=== PATIENT | male | born 1980 | race Caucasian/White ===

== ENCOUNTER 2016-07-10 17:35 | Emergency (ER) | payer BC, OTHER ==
[2016-07-10 17:43] VITALS: BMI 29.8
--- NOTE | 2016-07-10 17:47 | PDOC ---
History of Present Illness - General History Source: Patient, Family, Old Records <Mary Hernandez - Last Filed: 07/10/16 18:16> - History of Present Illness Initial Comments: 07/10/16 18:19 Patient is a 35 year old male with significant medical hx of anxiety/depression and schizoaffective disorder who brought in to the ED via EMS for somnolence and slurred speech since this afternoon. Patient is accompanied by mother who provided history. Mother reports the patient woke up very late in the day today and was acting more lethargic than usual. He was also slurring his speech and unsteady on his feet. She states that the patient reportedly took a few Ativan and called EMS suspecting that he took more than his prescribed dose. Patient is an unreliable historian. Patients psychiatrist was contacted who reported that the patient often has fixed paranoid delusions that worsens when he smokes marijuana. Today the patient e-mailed his psychiatrist vocalizing fears that people were out to get him and stated that his Ativan wasnt working. The patient had an appointment with his psychiatrist today but never showed. Psychiatrist: Wallace cMkee MD ([phone]) <Ekaterina Cheek - Last Filed: 07/10/16 18:43> <Adrianne Birmingham - Last Filed: 07/16/16 21:07> - General Chief Complaint: Altered Mental Status Stated Complaint: OVERDOSE Time Seen by Provider: 07/10/16 17:47 Past History - Past Medical History Psychiatric Problems: Yes (schizophrenic) - Psycho/Social/Smoking Cessation Hx Anxiety: Yes Suicidal Ideation: No Smoking Status: Yes Smoking History: Current every day smoker Number of Cigarettes Smoked Daily: 20 Information on smoking cessation initiated: No Hx Alcohol Use: No Drug/Substance Use Hx: No Substance Use Type: None <Mary Hernandez - Last Filed: 07/10/16 18:16> <Ekaterina Cheek - Last Filed: 07/10/16 18:43> <Adrianne Birmingham - Last Filed: 07/16/16 21:07> - Past Medical History Allergies/Adverse Reactions: Allergies Allergy/AdvReac Type Severity Reaction Status Date / Time No Known Allergies Allergy Verified 07/10/16 17:43 Home Medications: Ambulatory Orders Lamotrigine [Lamictal] 100 mg PO DAILY 03/09/12 Lorazepam [Ativan] 1 mg PO ASDIR 07/10/16 Lurasidone HCl [Latuda -] 40 mg PO DAILY 07/10/16 Review of Systems - Review of Systems Comments:: 07/10/16 18:20 Unable to obtain secondary to patient compliance. <Ekaterina Cheek - Last Filed: 07/10/16 18:43> *Physical Exam - Vital Signs Last Vital Signs Temp Pulse Resp BP Pulse Ox 97.9 F 120 H 18 136/91 100 07/10/16 17:38 07/10/16 17:38 07/10/16 17:38 07/10/16 17:38 07/10/16 17:38 <Mary Hernandez - Last Filed: 07/10/16 18:16> - Vital Signs Last Vital Signs Temp Pulse Resp BP Pulse Ox 97.9 F 120 H 18 136/91 100 07/10/16 17:38 07/10/16 17:38 07/10/16 17:38 07/10/16 17:38 07/10/16 17:38 - Physical Exam Comments: 07/10/16 18:20 GENERAL: Awake, alert, and fully oriented, in no acute distress HEAD: No signs of trauma EYES: PERRLA, EOMI, sclera anicteric, conjunctiva clear ENT: Auricles normal inspection, hearing grossly normal, nares patent, oropharynx clear without exudates. Moist mucosa NECK: Normal ROM, supple, no lymphadenopathy, JVD, or masses LUNGS: Breath sounds equal, clear to auscultation bilaterally. No wheezes, and no crackles HEART: Regular rate and rhythm, normal S1 and S2, no murmurs, rubs or gallops ABDOMEN: Soft, nontender, normoactive bowel sounds. No guarding, no rebound. No masses EXTREMITIES: Normal range of motion, no edema. No clubbing or cyanosis. No cords, erythema, or tenderness NEUROLOGICAL: Cranial nerves II through XII grossly intact. Unsteady on feet but moving all extremities equally. SKIN: Warm, Dry, normal turgor, no rashes or lesions noted. ENDOCRINE: No abnormal weight change. HEMATOLOGIC/LYMPHATIC: No anemia, easy bleeding, or history of blood clots. ALLERGIC/IMMUNOLOGIC: No hives or skin allergy. PSYCH: Paranoid. Uncooperative with physical exam. Blunted affect. <HamMengEkaterina - Last Filed: 07/10/16 18:43> - Vital Signs Last Vital Signs Temp Pulse Resp BP Pulse Ox 97.9 F 77 18 115/64 97 07/11/16 05:09 07/11/16 05:09 07/11/16 05:09 07/11/16 05:09 07/11/16 05:09 <BirminghamAdrianne - Last Filed: 07/16/16 21:07> Heart Score/ECG Review #1 07/10/16 18:43 Sinus tachycardia at 114 bpm Cannot rule Anterior infarct, age undetermined Abnormal ECG <HamEkaterina - Last Filed: 07/10/16 18:43> ED Treatment Course - LABORATORY CBC & Chemistry Diagram: 07/10/16 18:00 07/10/16 18:00 <HmaEkaterina - Last Filed: 07/10/16 18:43> - LABORATORY CBC & Chemistry Diagram: 07/10/16 18:00 07/10/16 19:00 - ADDITIONAL ORDERS Additional order review: Laboratory Results 07/10/16 07/10/16 07/10/16 19:00 19:00 19:00 Sodium Potassium Chloride Carbon Dioxide Anion Gap BUN Creatinine Creat Clearance w eGFR Random Glucose Calcium Total Bilirubin AST ALT Alkaline Phosphatase Creatine Kinase Troponin I Total Protein Albumin TSH 0.67 Salicylates < 4.0 Opiates Screen Methadone Screen Acetaminophen < 2.000 L Barbiturate Screen Phencyclidine Screen Ur Amphetamines Screen MDMA (Ecstasy) Screen Benzodiazepines Screen Cocaine Screen U Marijuana (THC) Screen Alcohol, Quantitative < 5.0 07/10/16 07/10/16 07/10/16 19:00 18:00 18:00 Sodium 140 Potassium 4.0 Chloride 106 Carbon Dioxide 25 Anion Gap 9 BUN 8 Creatinine 0.7 D Creat Clearance w eGFR > 60 Random Glucose 80 Calcium 8.9 Total Bilirubin 0.5 D AST 12 L D ALT 37 D Alkaline Phosphatase 128 H D Creatine Kinase 85 Troponin I < 0.02 Total Protein 6.3 L Albumin 3.5 TSH Salicylates Opiates Screen Negative Methadone Screen Negative Acetaminophen Barbiturate Screen Negative Phencyclidine Screen Negative Ur Amphetamines Screen Negative MDMA (Ecstasy) Screen Negative Benzodiazepines Screen Positive Cocaine Screen Negative U Marijuana (THC) Screen Negative Alcohol, Quantitative Cancelled 07/10/16 07/10/16 18:00 17:47 RBC 5.78 H MCV 82.4 MCHC 33.5 RDW 14.0 MPV 8.7 Neutrophils % 67.3 Lymphocytes % 16.9 Monocytes % 11.1 H Eosinophils % 3.5 Basophils % 1.2 POC Glucometer 92.52112 - Medications Given in the ED: ED Medications Discontinued Medications Generic Name Dose Route Start Last Admin Trade Name Coleman PRN Reason Stop Dose Admin Diphenhydramine HCl 50 mg 07/10/16 18:15 07/10/16 18:19 Benadryl Injection - IVPUSH 07/10/16 18:16 50 mg ONCE ONE Administration Haloperidol 5 mg 07/10/16 18:15 07/10/16 18:19 Haldol Injection (Fast Acting) - IM 07/10/16 18:16 5 mg ONCE ONE Administration <Adrianne Birmingham - Last Filed: 07/16/16 21:07> Medical Decision Making - Medical Decision Making 07/10/16 18:17 35-year-old male with history of schizoaffective disorder who presents to the emergency department with his parents who state that he has taken extra doses of his psych medications; the patient does not express homicidal or suicidal ideations and is not hallucinating although he is quite paranoid and uncooperative. Differential diagnosis includes but is not limited to: Psychosis , delusions, paranoia, electrolyte abnormality, overdose of Tylenol or salicylates, dehydration, toxic/metabolic derangement, intoxication. Plan: 1. Labs 2. EKG 3. Urine and urine tox screen 4. We'll medically clear and likely transfer for further psychiatric evaluation 5. Observe and reevaluate <Mary Hernandez - Last Filed: 07/10/16 18:16> - Medical Decision Making 07/11/16 06:55 I received patient on signout. He is a holdover for psych consult in the AM. I will sign him out to the morning ER doctor. He is awaiting evaluation by Dr. Anderson. 07/12/16 07:00 Pt re-signed out to Dr. Hernandez, who is aware of the patient, as she signed him out to me last night. <Adrianne Birmingham - Last Filed: 07/16/16 21:07> *DC/Admit/Observation/Transfer - Attestations Physician Attestion: 07/10/16 18:16 I, Dr. Mary Hernandez, attest that the scribes documentation that appears above has been prepared under my direction and personally reviewed by me in its entirety. I confirmed that the note above accurately reflects all work, treatment, procedures, and medical decision-making performed by me. <Mary Hernandez - Last Filed: 07/10/16 18:16> - Attestations Scribe Attestion: 07/10/16 18:22 Documentation prepared by Ekaterina Cheek, acting as biomedical engineering internship for Mary Hernandez MD. <Ekaterina Cheek - Last Filed: 07/10/16 18:43> <Adrianne Birmingham - Last Filed: 07/16/16 21:07> Diagnosis at time of Disposition: Schizoaffective disorder - Discharge Dispostion Disposition: HOME Condition at time of disposition: Stable - Patient Instructions Printed Discharge Instructions: DI for Schizoaffective Disorder Additional Instructions: Please follow-up with your psychiatrist in the morning. Return to the ED if Sx persist, worsen or new Sx arise.
[2016-07-10] MEDS ORDERED: HALOPERIDOL LACTATE 5 MG/ML ONE (18:07)
[2016-07-10] MEDS ORDERED: HALOPERIDOL LACTATE 5 MG/ML IM ONE (18:15)
[2016-07-10 18:37] LABS: URINE APPEARANCE CLEAR; URINE BILIRUBIN NEGATIVE (NEGATIVE); URINE BLOOD NEGATIVE (NEGATIVE); URINE COLOR YELLOW; URINE GLUCOSE (UA) NEGATIVE (NEGATIVE); URINE KETONE NEGATIVE (NEGATIVE); URINE LEUK ESTERASE NEGATIVE (NEGATIVE); URINE NITRITE NEGATIVE (NEGATIVE); URINE PROTEIN NEGATIVE (NEGATIVE); URINE UROBILINOGEN NEGATIVE E.U./dl (0.2-1.0)
[2016-07-10 19:03] LABS: URINE MARIJUANA THC NEGATIVE ng/ml (CUTOFF=50)
[2016-07-10 19:05] LABS: BASOPHIL 1.2 % (0-2.0); EOSINOPHIL 3.5 % (0-4.5); MCH 27.6 pg (25.7-33.7); MCHC 33.5 g/dl (32.0-35.9); MEAN CELL VOLUME 82.4 fl (80-96); MEAN PLT VOLUME 8.7 fl (7.5-11.1); NEUTROPHILS 67.3 % (42.8-82.8); PLATELET COUNT 260 K/MM3 (134-434); WHITE BLOOD COUNT 14.1 K/mm3 (4.0-10.0)
[2016-07-10 19:41] LABS: ALBUMIN 3.5 g/dl (3.4-5.0); ANION GAP 9 (8-16); BILIRUBIN,TOTAL 0.5 mg/dL (0.2-1.0); CALCIUM 8.9 mg/dL (8.5-10.1); CO2 25 mmol/L (21-32); CREATININE 0.7 mg/dL (0.7-1.3); GLUCOSE,RANDOM 80 mg/dL (74-106); SGOT/AST 12 U/L (15-37); SGPT/ALT 37 U/L (12-78); TOT PROT 6.3 g/dl (6.4-8.2)
[2016-07-10 19:43] LABS: ALK PHOS 128 U/L (45-117); TROPONIN I < 0.02 ng/ml (0.00-0.05)
[2016-07-10 19:52] LABS: SALICYLATE < 4.0 mg/dl (0.0-30.0)
[2016-07-11 03:09] VITALS: TEMP 97.9
[2016-07-11] MEDS ORDERED: HALOPERIDOL LACTATE 5 MG/ML ONE (08:26)
[2016-07-11] MEDS ORDERED: LORAZEPAM CARPU-JECT 2 MG/ML DISP.SYRIN ONE (08:27)
[2016-07-11] MEDS ORDERED: HALOPERIDOL LACTATE 5 MG/ML IVPUSH ONE (08:32)
[2016-07-11] MEDS ORDERED: LORAZEPAM CARPU-JECT 2 MG/ML DISP.SYRIN IVPUSH ONE (08:32)
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
--- NOTE | 2016-07-11 12:42 | CON.PSY ---
Psychiatry Consult Chief Complaint: pt apparantly took an overdose opf ativan. urine positive for Benzodiazipines. family reports some non compliance with psych meds. Symptoms: reports: Delusions - Previous Psychiatric Treatment Outpatient: Less than 6 mos ago Inpatient: One prior admission - Previous Substance Abuse Treatment Outpatient: None Inpatient: None - Reason for Previous Treatment Reason for Previous Treatment: Biploar Illness - Allergies Allergies: Allergies Allergy/AdvReac Type Severity Reaction Status Date / Time No Known Allergies Allergy Verified 07/10/16 17:43 - Current Living Status Usual Living Arrangement: With Parent - Current Mental Status Evaluation Appearance: Disheveled Attitude: Guarded - Affect Affect: Constrictive Appropriateness: Appropriate to Content - Mood Mood: Irritable - Speech/Language Expressive: Coherent - Psychomotor Activity Psychomotor Activity: Slowed - Thought Process Thought Process: Circumstantial - Thought Content Hallucinations: Absent Delusions: Present Type: Persectory - Self Perception Self Perception: No Impairment - Cognition Attention: Alert Orientation: Time Memory, Immediate Recall: Intact Memory, Remote with Promptin/3 - Concentration Serial Sevens Intact: Yes Simple Calculations Intact: Yes - Abstraction Proverb Interpretation: Intact Judgement: Moderately Impaired - Insight Insight: Intact - Impulse Control Impulse Control: Minimally Impaired - Suicidal Ideation Suicidal Ideation: No - Homicidal Ideation Homicidal Ideation: No Assessment/Plan Dicharge when medically clear. Follow up with Pvt psych Dr. Osborne.
[2016-07-11 12:55] VITALS: BP 134/79; PULSE 122
--- NOTE | 2016-07-11 22:30 | EKG ---
Test Reason : Blood Pressure : / mmHG Vent. Rate : 114 BPM Atrial Rate : 114 BPM P-R Int : 136 ms QRS Dur : 090 ms QT Int : 322 ms P-R-T Axes : 056 013 051 degrees QTc Int : 443 ms SINUS TACHYCARDIA CANNOT RULE OUT ANTERIOR INFARCT , AGE UNDETERMINED ABNORMAL ECG NO PREVIOUS ECGS AVAILABLE Confirmed by KEN SENIOR MD ([id number]) on 07/11/2016 10:30:03 PM Referred By: Confirmed By:KEN SENIOR MD
== END 2016-07-11 13:07 | disposition home or self-care (01) ==
LOC: JER 17:35
PROC: 3E023GC Introduction of Other Therapeutic Substance into Muscle, Percutaneous Approach (ICD-10-PCS; principal; 2016-07-10)
PROC: 3E033GC Introduction of Other Therapeutic Substance into Peripheral Vein, Percutaneous Approach (ICD-10-PCS; 2016-07-10)
PROC: 3E033NZ Introduction of Analgesics, Hypnotics, Sedatives into Peripheral Vein, Percutaneous Approach (ICD-10-PCS; 2016-07-10)
DX: F25.8 Other schizoaffective disorders (principal); T42.4X1A Poisoning by benzodiazepines, accidental (unintentional), initial encounter; R40.0 Somnolence; Y92.018 Other place in single-family (private) house as the place of occurrence of the external cause; F41.8 Other specified anxiety disorders; F17.210 Nicotine dependence, cigarettes, uncomplicated; Z91.14 Patient's other noncompliance with medication regimen
CPT/HCPCS: 36415; 71010-TC; 80053; 80307; 81003; 82550; 84443; 84484; 85025; 93005; 93010; 99283-25

== ENCOUNTER 2016-08-11 00:12 | Emergency (ER) | payer BC, OTHER ==
--- NOTE | 2016-08-11 00:18 | PDOC ---
[id number] is a 35 year old male with a past medical hx of schizoaffective disorder, anxiety, and depression who presents to the ED requesting a full body scan. Explained to the patient that we do not have a body scan. He stated Thank you but you cannot help me here. The patient then walked out before a medical evaluation could be performed. The patient did not voice any suicidal or homicidal ideology. <Yulisa Blanc - Last Filed: 08/11/16 00:40> <Estefania Haro - Last Filed: 08/11/16 02:16> - General Stated Complaint: PAIN,BACK Time Seen by Provider: 08/11/16 00:18 Past History <Yulisa Blanc - Last Filed: 08/11/16 00:40> - Past Medical History Psychiatric Problems: Yes (schizophrenic) - Psycho/Social/Smoking Cessation Hx Anxiety: Yes Suicidal Ideation: No Smoking Status: Yes Smoking History: Current every day smoker Number of Cigarettes Smoked Daily: 20 Hx Alcohol Use: No Drug/Substance Use Hx: No Substance Use Type: None <Estefania Haro - Last Filed: 08/11/16 02:16> - Past Medical History Allergies/Adverse Reactions: Allergies Allergy/AdvReac Type Severity Reaction Status Date / Time No Known Allergies Allergy Verified 07/10/16 17:43 Home Medications: Ambulatory Orders Lamotrigine [Lamictal] 100 mg PO DAILY 03/09/12 Lorazepam [Ativan] 1 mg PO ASDIR 07/10/16 Lurasidone HCl [Latuda -] 40 mg PO DAILY 07/10/16 *DC/Admit/Observation/Transfer - Attestations Scribe Attestion: 08/11/16 00:40 Documentation prepared by Yulisa Blanc, acting as medical equipment repairer for MD ROLO/ DO. <Yulisa Blanc - Last Filed: 08/11/16 00:40> <Estefania Haro - Last Filed: 08/11/16 02:16> Diagnosis at time of Disposition: [facility] - Discharge Dispostion Disposition: LEFT BEFORE MED EVAL, [facility] Condition at time of disposition: Unchanged/Unknown
== END 2016-08-11 00:39 | disposition left against medical advice (07) ==
LOC: JER 00:12
DX: Z53.21 Procedure and treatment not carried out due to patient leaving prior to being seen by health care provider (principal)
CPT/HCPCS: 99281-25

== ENCOUNTER 2016-11-22 10:03 | Emergency (ER) | payer BC, OTHER ==
[2016-11-22 10:22] VITALS: BP 116/76; PULSE 99; TEMP 98.4; BMI 28.5
--- NOTE | 2016-11-22 11:24 | PDOC ---
History of Present Illness - General Chief Complaint: Pain Stated Complaint: testicular pain Time Seen by Provider: 11/22/16 11:14 History Source: Patient Exam Limitations: No Limitations - History of Present Illness Initial Comments: CHIEF COMPLAINT: 35 y/o afebrile male with no significant PMH c/o testicle pain since this morning. HISTORY OF PRESENT ILLNESS: He states his testicles were both red this morning but not so much now. The patient denies f/c, n/v/d, swelling to testicles, elevation of testicles, abd pain, hematuria, dysuria, abnormal penile discharge. He has not taken anything for pain. He is not circumsized. Vital signs on arrival are notable for pulse of 99. REVIEW OF SYSTEMS: GENERAL/CONSTITUTIONAL: No fever/chills. No weakness. No weight change. GASTROINTESTINAL: No abd pain, nausea, vomiting, diarrhea. GENITOURINARY: No dysuria, frequency, or change in urination. +testicle pain MUSCULOSKELETAL: No joint or muscle swelling or pain. No neck or back pain. SKIN: No rash or easy bruising. NEUROLOGIC: No headache, vertigo, loss of consciousness, or loss of sensation. PHYSICAL EXAM: GENERAL: The patient is awake, alert, and fully oriented, in no acute distress. ABDOMEN: Soft, non-distended, non-tender even to deep palpation, no hepatomegaly or splenomegaly, no masses. EXTREMITIES: Normal range of motion, no edema. GENITALS: No erythema, warmth, swelling, elevation to b/l testicles. Pt is not circumsized. Absent cremasteric reflex b/l testicles. NEUROLOGICAL: Normal speech, normal gait. CN II-XII grossly intact. PSYCH: Normal mood, normal affect. SKIN: Warm, dry, normal turgor, no rashes or lesions noted. Past History - Past Medical History Allergies/Adverse Reactions: Allergies Allergy/AdvReac Type Severity Reaction Status Date / Time No Known Allergies Allergy Verified 11/22/16 10:18 Home Medications: Ambulatory Orders Lamotrigine [Lamictal] 100 mg PO DAILY 03/09/12 Lorazepam [Ativan] 1 mg PO ASDIR 07/10/16 Lurasidone HCl [Latuda -] 40 mg PO DAILY 07/10/16 Psychiatric Problems: Yes (depression) - Psycho/Social/Smoking Cessation Hx Anxiety: Yes Suicidal Ideation: No Smoking Status: Yes Smoking History: Current every day smoker Have you smoked in the past 12 months: Yes Number of Cigarettes Smoked Daily: 20 Information on smoking cessation initiated: Yes 'Breaking Loose' booklet given: 11/22/16 Hx Alcohol Use: No Drug/Substance Use Hx: No Substance Use Type: None *Physical Exam - Vital Signs Last Vital Signs Temp Pulse Resp BP Pulse Ox 98.4 F 99 H 18 116/76 100 11/22/16 10:11/22/16 10:11/22/16 10:11/22/16 10:11/22/16 10:19 Medical Decision Making - Medical Decision Making A/P: 35 y/o afebrile male with b/l testicular pain since this morning. Plan is as follows: 1. Scrotum ultrasound 2. UA/culture/GC/chlamydia 3. PO ibuprofen Scrotal ultrasound IMPRESSION: Left testicular cysts and minimal bilateral hydroceles. UA negative for infection. Gave patient all of the results. Will discharge to home with Urologist referral. Suggested Motrin for pain with food every 6 hours and return to the ER with any worsening or concerning symptoms. The patient verbalizes understanding of all instructions, has no further questions and is awaiting discharge. *DC/Admit/Observation/Transfer Diagnosis at time of Disposition: Testicular cyst, Hydrocele in adult - Discharge Dispostion Disposition: HOME Condition at time of disposition: Good - Referrals Referrals: Ricardo Paiz MD., MD [Staff Physician] - Call tomorrow - Patient Instructions Printed Discharge Instructions: DI for Hydrocele-Adult Additional Instructions: Discharge Instructions: -Please call Dr. Paiz and follow up as soon as possible -Take Motrin if needed for pain -Return to the ER with any worsening or concerning symptoms
[2016-11-22] MEDS ORDERED: IBUPROFEN 600 MG TABLET (FP) PO ONE ×2 (11:34→11:38)
[2016-11-22 11:57] LABS: URINE APPEARANCE CLEAR; URINE BILIRUBIN NEGATIVE (NEGATIVE); URINE BLOOD NEGATIVE (NEGATIVE); URINE COLOR LTYELLOW; URINE GLUCOSE (UA) NEGATIVE (NEGATIVE); URINE KETONE NEGATIVE (NEGATIVE); URINE LEUK ESTERASE NEGATIVE (NEGATIVE); URINE NITRITE NEGATIVE (NEGATIVE); URINE PROTEIN NEGATIVE (NEGATIVE); URINE UROBILINOGEN NEGATIVE E.U./dl (0.2-1.0)
== END 2016-11-22 13:45 | disposition home or self-care (01) ==
LOC: JERFT 10:03
DX: N44.2 Benign cyst of testis (principal); N43.2 Other hydrocele
CPT/HCPCS: 36415; 76870-TC; 81003; 87086; 87491; 87591; 99281-25

== ENCOUNTER 2018-02-09 00:58 | Emergency (ER) | payer BC, OTHER ==
[2018-02-09 01:29] VITALS: BP 119/81; PULSE 80; TEMP 98.6; BMI 32.1
[2018-02-09] MEDS ORDERED: IBUPROFEN 600 MG TABLET (FP) PO ONE ×2 (01:36→02:15)
--- NOTE | 2018-02-09 01:44 | PDOC ---
History of Present Illness - General Chief Complaint: Pain Stated Complaint: GROIN PAIN,NAUSEA Time Seen by Provider: 02/09/18 01:11 History Source: Patient, Old Records Exam Limitations: No Limitations - History of Present Illness Initial Comments: 02/09/18 01:37 Healthy 37-year-old male with history of schizoaffective disorder and testicular cyst diagnosed on ultrasound during previous visit in 2017 presents today with 1-2 weeks of cloudy urine and inguinal/pelvic discomfort. Slight dysuria, no frequency/urgency, no fever/chills, no flank pain. no night sweats/ weight loss. no h/o recurring UTI or prostate issues. No h/o STI, has not been sexually active in 2 years. no n/v/d/c, no rash. presents for evaluation today concerned about torsion, but no significant scrotal pain. Past History - Past Medical History Allergies/Adverse Reactions: Allergies Allergy/AdvReac Type Severity Reaction Status Date / Time No Known Allergies Allergy Verified 02/09/18 01:29 Home Medications: Ambulatory Orders Lamotrigine [Lamictal] 100 mg PO DAILY 03/09/12 Aripiprazole [Abilify] 20 mg PO HS 02/09/18 Cephalexin Monohydrate [Keflex -] 500 mg PO BID #14 capsule 02/09/18 Psychiatric Problems: Yes (depression) - Suicide/Smoking/Psychosocial Hx Smoking Status: Yes Smoking History: Never smoked Have you smoked in the past 12 months: No Number of Cigarettes Smoked Daily: 20 Information on smoking cessation initiated: No 'Breaking Loose' booklet given: 11/22/16 Hx Alcohol Use: No Drug/Substance Use Hx: No Substance Use Type: None Review of Systems - Review of Systems Constitutional: No: Chills, Fever, Night Sweats, Unintentional Wgt. Loss Respiratory: No: Cough, Shortness of Breath Cardiac (ROS): No: Chest Pain, Lightheadedness ABD/GI: No: Constipated, Diarrhea, Nausea, Vomiting : Yes: Symptoms Reported Neurological: No: Headache All Other Systems: Reviewed and Negative *Physical Exam - Vital Signs Last Vital Signs Temp Pulse Resp BP Pulse Ox 98.6 F 80 19 119/81 97 02/09/18 01:00 02/09/18 01:00 02/09/18 01:00 02/09/18 01:00 02/09/18 01:00 - Physical Exam Comments: 02/09/18 01:44 Afebrile, vital signs normal well appearing, ambulating comfortably, no acute distress no jaundice/pallor abd soft/nt/nd bs nl. no guarding/rebound. no cvat. slight suprapubic discomfort to palpation. normal uncircumsized penis, no redness/swelling. no urethral discharge or erythema. no scrotal swelling/redness, no abnormality to testicle or epididymis bilaterally, no tenderness, bilaterally descended. No notable inguinal lymphadenopathy ED Treatment Course - RADIOLOGY Radiology Studies Ordered: Category Date Time Status SCROTUM AND CONTENTS US [US] Stat Ultrasound 02/09/18 01:35 Ordered Medical Decision Making - Medical Decision Making 02/09/18 01:48 37-year-old male presents with cloudy urine and dysuria for 1-2 weeks, suprapubic discomfort without focal findings on exam to suggest skin or scrotal infection or torsion. Could be most consistent with UTI, no evidence of prostatitis, has not had any high risk exposure for STI. Check urinalysis and urine culture, we'll likely treat empirically for UTI Scrotal ultrasound given history of cysts though low suspicion for orchitis or torsion Ibuprofen for pain We'll send gonorrhea and chlamydia cultures, but would not treat empirically given no reported sexual activity 02/09/18 02:50 continues to look and feel well, no new findings or complaints. UA wnl, ultrasound shows normal flow, no torsion, baseline L testicular cysts without mass. Will proceed with empiric treatment with abx for UTI given dysuria, f/u culture. Agrees with d/c plan, will refer to urology. Understands return criteria. *DC/Admit/Observation/Transfer Diagnosis at time of Disposition: Dysuria - Discharge Dispostion Disposition: HOME Condition at time of disposition: Stable - Prescriptions Prescriptions: Cephalexin Monohydrate [Keflex -] 500 mg PO BID #14 capsule - Referrals Referrals: Shorty Cta [Primary Care Provider] - Elliot Méndez MD [Staff Physician] - - Patient Instructions Printed Discharge Instructions: DI for Dysuria -- Adult Additional Instructions: Activity as tolerated. Stay hydrated. Tylenol 1000 mg every 8 hours and/or ibuprofen 600 mg every 8 hours as needed for pain. A urinalysis and ultrasound showed no acute abnormalities. Because of the symptoms, we are treating with antiobiotics for a presumed urine infection. Take cephalexin as prescribed. Culture results should be available by Tuesday. Continue your medications as previously prescribed by your physician. You should follow up with your primary doctor and a urologist (consider calling Dr. Méndez) as soon as possible regarding today's emergency department visit. Return to the emergency department for any new or concerning symptoms, particularly persistent or worsening pain or difficulty urinating, fevers/chills , bloody urine, scrotal redness or swelling. - Post Discharge Activity
[2018-02-09] MEDS ORDERED: IBUPROFEN 400 MG TABLET (FP) PO ONE (02:10)
[2018-02-09 02:39] LABS: URINE APPEARANCE TURBID; URINE BILIRUBIN NEGATIVE (<2.0 mg/dL); URINE GLUCOSE (UA) NEGATIVE (NEGATIVE); URINE KETONE TRACE (NEGATIVE); URINE LEUK ESTERASE NEGATIVE (NEGATIVE); URINE NITRITE NEGATIVE (NEGATIVE); URINE PROTEIN NEGATIVE (NEGATIVE)
[2018-02-09 02:42] LABS: URINE COLOR DK YELLOW
== END 2018-02-09 03:00 | disposition home or self-care (01) ==
LOC: JER 00:58
DX: N39.0 Urinary tract infection, site not specified (principal); R30.0 Dysuria
CPT/HCPCS: 36415; 76870-TC; 81003; 87086; 87491; 87591; 99282-25